=== PATIENT | female | born 1945 | race Caucasian/White ===

== ENCOUNTER → 2017-07-25 | Outpatient (CLI) | payer MEDICARE ==
[2016-07-12 11:24] VITALS: BP 128/92
[~2017-07-25] MED LIST: ACET500T68 PO; ALBU2.5V5 NEB; ALBU25PO2 MC; ALBU8.5H6 IH; AMLO10TA2 PO; AMLO5TAB2 PO; Amoxicillin/Potassium Clav PO; BISA10SU55 RC; BUDE0.25 IH; CEFE1VIA2 IV; CEPH500C PO; COLE1TAB PO; DEXT237L PO; DICY10CA3 PO; Diphenoxylate Hcl/Atropine PO; FAMO-63 PO; FERR-26 PO; FLUT1DIS3 IH; FURO40TA4 PO; HYDR25TA9 PO; IOHEXOL 180 MG/ML 10 ML VIAL. ONE; IPRA3AMP NEB; LORA0.5T PO; LOSA100T6 PO; LOSA50TA2 PO; MAGN400O7 PO; MAGN400T22 PO; MULTIVITAMIN; ONDA4TAB10 PO; ONDA4TAB12 PO; PANT40TA3 PO; PANT40TA5 PO; POLY17PO29 PO; POTA20TA12 PO; PRED20TA PO; PROAIR HFA8.5 GM INH; RIVA10TA PO; SENN-79 PO; SIME100L MC; TIOT18CA IH; WARF4TAB68 PO; methylPREDNISolone ACETATE 40 MG/ML VIAL. ONE; methylPREDNISolone ACETATE 80 MG/ML VIAL. ONE
--- NOTE | 2017-07-25 11:26 | PAIN ---
DATE OF SERVICE: 07/25/2017 PROGRESS NOTE FOR PAIN CLINIC DIAGNOSES: Lumbar radiculopathy with lumbar degenerative disk disease. HISTORY OF PRESENT ILLNESS: The patient is a 72-year-old female who returns for followup, status post previous lumbar epidural steroid injections. The patient was last seen on 09/24/2014. The patient did very well, reports with about a 75% improvement in her pain, but the pain is returning now over the past 6 months or so, increasing in the low back and left lower extremity, mostly in the posterior gluteus, posterior thigh radiating into the posterior lower leg, also lateral lower thigh and lateral thigh is aching, tingling radiating becoming more severe and more unbearable. The patient reports it awakens her from sleep occasionally, but not every night. She has to reposition, but she can still get back to sleep. After about 6 hours of sleeping that sometimes would wake her up and not at all times. The patient reports no new motor or sensory deficits, no new bowel or bladder incontinence, but still significant pain, worse with walking or standing on her left leg more than her right. She is starting to favor the left leg, is beginning to have some tenderness on the right side too since the pain is becoming more noticeable. The patient reports no motor deficit, no bowel or bladder incontinence or other complaints. PAST MEDICAL HISTORY: Significant for arthritis, osteoporosis, hypertension, hiatal hernia, cigarette smoking, and oxygen dependency. PREVIOUS SURGERY: Include hysterectomy, right breast biopsy, appendectomy, right shoulder surgeries as well. CURRENT MEDICATIONS: Well documented and updated on the patient's chart today. ALLERGIES: IODINE, PHENYLEPHRINE, HYDROCODONE, ACTONEL, as well as CIPRO. 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 The patient lives with her spouse. Smokes half a pack of cigarettes a day. Does not drink alcohol. FAMILY HISTORY: Significant for breast cancer and hypertension. REVIEW OF SYSTEMS: The patient's review of systems is positive for those items mentioned in history of present illness. All systems reviewed and otherwise negative. It is complete, full, and well documented on the patient's chart. PHYSICAL EXAMINATION: VITAL SIGNS: Today, blood pressure is 139/67, pulse is 98, respirations 18, temperature 98.2 degrees Fahrenheit, height is 5 feet 5 inches, weight is 150 pounds. GENERAL: The patient is awake, alert, oriented, appropriate, very pleasant demeanor. HEENT: Head shows normocephalic, atraumatic. Extraocular movements intact and symmetrical. The patient wears eye glasses. Oral cavity has mucous membranes moist and pink. Dentition is intact. NECK: Shows anterior throat supple without palpable lymphadenopathy noted. Swallow reflex is symmetrical. CHEST: Shows normal on inspection. Breath sounds clear to auscultation bilaterally, but distant. The patient is wearing nasal cannula oxygen at 2 liters. HEART: Shows S1 and S2 clear. No murmurs auscultated. ABDOMEN: Soft, nontender, nondistended. No palpable organomegaly is noted. BACK: Shows spine grossly midline. Slight exaggeration of thoracic kyphosis and mild flattening of lumbar lordotic curvature. No previous bruises, lesions, rashes or scars are noted. Lumbar paraspinous muscle shows some moderate tenderness to palpation, but only diffusely in the mid and lower lumbar distribution without radiation. No tenderness over the sacrum or sacroiliac regions. EXTREMITIES: Lower extremities showed deep tendon reflexes 1+ in the patella and tendo calcaneus tendons are equal. Motor exam is strong with dorsiflexion, extension, quadriceps and hamstring flexion all strong rated at 5/5 bilaterally. Peripheral pulses are 1+ posterior tibia. No peripheral edema is noted bilaterally. Options were discussed with the patient and the patient's old chart was reviewed as her current medication regimen and updated. Current review of systems updated today as well. We will proceed with lumbar epidural steroid injections. He has done very well with these in the past. Risks were again discussed including, but not limited to bleeding, infection, possibility of epidural hematoma, subsequent neurologic compromise, dural puncture, headaches, spinal cord and/or nerve damage, side effects of steroid medication and poor results regarding pain control. The patient understands and wished to proceed. The patient will return to clinic in approximately 2 weeks for followup, was counseled on return appointment, activity level and side effects to be aware of. DIAGNOSIS: Lumbar radiculopathy with lumbar degenerative disk disease. PROCEDURE: Lumbar epidural steroid injection in translaminar approach at the L5-S1 level using C-arm fluoroscopic guidance under sterile prep and drape using local anesthetic. MEDICATIONS INJECTED: A total of 120 mg of Depo-Medrol mg plus 10 mL of preservative-free normal saline and 2 mL of Isovue for contrast. CONDITION AT DISCHARGE: Stable. The patient tolerated the procedure well, had no complications. NEMESIO LEE MD DR: JOSE/gale JOB#: [id number] / [id number]
== END | disposition home or self-care (01) ==
LOC: PNCL 08:47
PROVIDERS: ATTEND Anesthesiology
DX: M51.16 Intervertebral disc disorders with radiculopathy, lumbar region (principal); I10 Essential (primary) hypertension; M19.91 Primary osteoarthritis, unspecified site; M81.0 Age-related osteoporosis without current pathological fracture; F17.200 Nicotine dependence, unspecified, uncomplicated; E66.9 Obesity, unspecified; Z68.45 Body mass index [BMI] 70 or greater, adult; D64.9 Anemia, unspecified; Z88.6 Allergy status to analgesic agent; Z80.3 Family history of malignant neoplasm of breast; Z82.49 Family history of ischemic heart disease and other diseases of the circulatory system; Z90.710 Acquired absence of both cervix and uterus; Z91.048 Other nonmedicinal substance allergy status; Z87.39 Personal history of other diseases of the musculoskeletal system and connective tissue; Z88.3 Allergy status to other anti-infective agents
CPT/HCPCS: 62323; J1030; J1040

== ENCOUNTER → 2017-08-15 | Outpatient (CLI) | payer MEDICARE ==
[2016-07-12 11:24] VITALS: BP 128/92
[~2017-08-15] MED LIST changes: -IOHEXOL 180 MG/ML 10 ML VIAL. ONE
--- NOTE | 2017-08-15 21:21 | PAIN ---
DATE OF SERVICE: 08/15/2017 This is a progress note for the Pain Clinic. DIAGNOSES: Lumbar radiculopathy with lumbar degenerative disk disease. HISTORY OF PRESENT ILLNESS: Mrs. Schmitt is a 72-year-old female who returns for followup status post lumbar epidural steroid injection x 1. The patient reports about 75% improvement initially, but the pain is returning now in the low back and left lower extremity, as it was previously. The patient reports it a 10 on a scale of 10 at its worst, least is a 5 on a scale of 10, averaging about a 7. The patient reports no new motor or sensory deficits, no new bowel or bladder incontinence. Has been increasing her activities with greater ease and comfort. The pain has begun to return again in the low back and left leg. It is aching, tingling, stabbing, radiating constant, becoming more severe pain. The patient reports no new motor or sensory deficits, no new bowel or bladder incontinence or other complaints, but still significant pain as noted. The patient reports it awakens her from sleep. She sleeps about 5 hours at a time, and otherwise is doing well. No new motor or sensory deficits, no new bowel or bladder incontinence or other complaints. PHYSICAL EXAMINATION: VITAL SIGNS: Today the patient's blood pressure 131/81, pulse 90, respirations 16, temperature is 99.3 degrees Fahrenheit, height is 5 feet 3 inches, weight 149 pounds. GENERAL: The patient is awake, alert, oriented, appropriate, very pleasant demeanor. HEENT: Head shows normocephalic, atraumatic. Extraocular movements are intact, symmetrical. Oral cavity, mucous membranes are moist and pink. Dentition is intact. NECK: Shows anterior throat supple without palpable lymphadenopathy noted. Swallow reflex is symmetrical. CHEST: Shows normal on inspection. Breath sounds are clear to auscultation bilaterally. HEART: Shows S1 and S2 clear. ABDOMEN: Soft, nontender, nondistended. No palpable organomegaly, no rebound or guarding demonstrated. BACK: The patient's back shows spine grossly in the midline. Lumbar paraspinous muscle shows some moderate tenderness with palpation, but without radiation or trigger points. The patient shows good rotational motion, both laterally as well as with extension and flexion. No tenderness over the sacrum or sacroiliac regions. EXTREMITIES: Lower extremities show deep tendon reflexes 2+ in the patellar tendons, 1+ in tendo calcaneus tendons. Motor exam is strong with 5/5 dorsiflexion, extension, quadriceps and hamstring flexion. Peripheral pulses are 1+ bilaterally. No peripheral edema is noted. PLAN: Options were discussed with the patient. The patient's old chart was reviewed, as her current medication regimen updated. Current review of systems updated today as well. We will proceed with a second lumbar epidural steroid injection today with fluoroscopic guidance. Risks were again discussed including, but not limited to bleeding, infection, possibility of epidural hematoma, subsequent neurologic compromise, dural punctures, headaches, spinal cord and/or nerve damage, side effects of steroid medication and poor results regarding pain control. The patient understands and wishes to proceed. The patient will return to clinic in approximately 2 weeks for followup. Was counseled on return appointment, activity level and side effects to be aware of. DIAGNOSIS: Lumbar radiculopathy with lumbar degenerative disk disease. PROCEDURE: Lumbar epidural steroid injection in translaminar approach at L5-S1 level using C-arm fluoroscopic guidance, under sterile prep and drape using local anesthetic. MEDICATIONS INJECTED: Total of 120 mg Depo-Medrol plus 10 mL preservative free normal saline. CONDITION AT DISCHARGE: Stable. The patient tolerated procedure well, had no complications. NEMESIO LEE MD DR: JOSE/gale JOB#: [id number] / [id number]
== END | disposition home or self-care (01) ==
LOC: PNCL 09:08
PROVIDERS: ATTEND Anesthesiology
DX: M51.16 Intervertebral disc disorders with radiculopathy, lumbar region (principal); I10 Essential (primary) hypertension; K21.9 Gastro-esophageal reflux disease without esophagitis; J44.9 Chronic obstructive pulmonary disease, unspecified; E66.9 Obesity, unspecified; Z68.45 Body mass index [BMI] 70 or greater, adult; M19.91 Primary osteoarthritis, unspecified site; M81.0 Age-related osteoporosis without current pathological fracture; Z90.710 Acquired absence of both cervix and uterus; Z86.69 Personal history of other diseases of the nervous system and sense organs; Z86.73 Personal history of transient ischemic attack (TIA), and cerebral infarction without residual deficits; Z86.718 Personal history of other venous thrombosis and embolism; Z87.39 Personal history of other diseases of the musculoskeletal system and connective tissue; Z87.891 Personal history of nicotine dependence; Z86.14 Personal history of Methicillin resistant Staphylococcus aureus infection; Z88.1 Allergy status to other antibiotic agents; Z88.8 Allergy status to other drugs, medicaments and biological substances
CPT/HCPCS: 62323; J1030; J1040

== ENCOUNTER → 2017-09-05 | Outpatient (CLI) | payer MEDICARE ==
[2016-07-12 11:24] VITALS: BP 128/92
[~2017-09-05] MED LIST changes: +IOHEXOL 180 MG/ML 10 ML VIAL. ONE
--- NOTE | 2017-09-05 10:11 | PAIN ---
DATE OF SERVICE: 09/05/2017 DIAGNOSES: Lumbar radiculopathy with lumbar degenerative disk disease. HISTORY OF PRESENT ILLNESS: The patient is a 72-year-old female who returns for followup status post lumbar epidural steroid injections x 2, most recently seen on 08/15. The patient did well with this initially with about 50% improvement, now it is about 30% overall. The patient reports still significant pain in low back, left hip and leg radiating into the posterior calf, posterior gluteus and posterior thigh. The patient reports radiating constant severe aching and dull, worse with walking and standing, change in positions, better with sitting down or lying down, reports it does not awaken her from sleep. She sleeps well through the night. Pain is a 7 on a scale of 10 at its worst, 6 on average, 4 today. The patient reports no new motor or sensory deficits, no new bowel or bladder incontinence or other complaints. PHYSICAL EXAMINATION: VITAL SIGNS: The patient's blood pressure 115/62, pulse 83, respirations are 18, temperature 98.2 degrees Fahrenheit, height is 5 feet 3 inches, weight is 145 pounds. GENERAL: The patient is awake, alert, oriented, appropriate, very pleasant demeanor. HEENT: Head shows normocephalic, atraumatic. Extraocular movements are intact and symmetrical. Oral cavity shows mucous membranes moist and pink. Dentition is intact. NECK: Shows anterior throat supple without palpable lymphadenopathy noted. Swallow reflex is symmetrical. CHEST: Shows normal on inspection. Breath sounds are clear to auscultation bilaterally. HEART: Shows S1 and S2 clear. No murmurs auscultated. ABDOMEN: Soft, nontender, nondistended. No palpable organomegaly is noted. BACK: Shows spine grossly in midline with some mild increase in thoracic kyphosis and some mild flattening of lumbar lordotic curvature. Lumbar paraspinous musculature shows symmetrical on inspection, with palpation shows some diffuse tenderness, but only diffusely in the bilateral paraspinous musculature, right and left, essentially equal without radiation. EXTREMITIES: Lower extremities show deep tendon reflexes 2+ in the patellar, 1+ tendo calcaneus tendons. Motor exam is approximately 5/5 dorsiflexion, extension, quadriceps and hamstring flexion and are symmetrical. Peripheral pulses are 1+ posterior tibial. Options were discussed with the patient and the patient's old chart was reviewed as her current medication regimen updated. Current review of systems updated today as well. We will proceed with a third in the series of lumbar epidural steroid injection with fluoroscopic guidance. Risks were again discussed including, but not limited to bleeding, infection, possibility of epidural hematoma, subsequent neurologic compromise, dural punctures, headaches, spinal cord and/or nerve damage, side effects of steroid medication and poor results regarding pain control. The patient understands and wishes to proceed. The patient will return to clinic in approximately 2 weeks for followup. She was counseled to return appointment, activity level and side effects to be aware of. The patient also reports she is having orthopedic evaluation for her left hip as she has some significant osteoarthritis there. We will await results of the evaluation as well. DIAGNOSES: Lumbar radiculopathy with lumbar degenerative disk disease. PROCEDURE: Lumbar epidural steroid injection in translaminar approach at the L5-S1 level, using C-arm fluoroscopic guidance under sterile prep and drape using local anesthetic. Medication injected a total of 120 mg Depo-Medrol, plus 10 mL of preservative-free normal saline and 2 mL of Isovue for contrast. CONDITION AT DISCHARGE: Stable. The patient tolerated procedure well, had no complications. NEMESIO LEE MD DR: JOSE/gale JOB#: [id number] / [id number]
== END | disposition home or self-care (01) ==
LOC: PNCL 08:52
PROVIDERS: ATTEND Anesthesiology
DX: M51.16 Intervertebral disc disorders with radiculopathy, lumbar region (principal); I10 Essential (primary) hypertension; E66.9 Obesity, unspecified; K21.9 Gastro-esophageal reflux disease without esophagitis; D64.9 Anemia, unspecified; Z87.39 Personal history of other diseases of the musculoskeletal system and connective tissue; Z88.8 Allergy status to other drugs, medicaments and biological substances; Z88.6 Allergy status to analgesic agent; Z88.1 Allergy status to other antibiotic agents; Z86.73 Personal history of transient ischemic attack (TIA), and cerebral infarction without residual deficits; Z91.041 Radiographic dye allergy status; Z86.718 Personal history of other venous thrombosis and embolism; Z90.710 Acquired absence of both cervix and uterus; Z72.0 Tobacco use
CPT/HCPCS: 62323; J1030; J1040